=== PATIENT | female | born 1980 | race Caucasian/White ===

== ENCOUNTER 2017-08-08 18:03 | Emergency (ER) | payer OTHER ==
[~2017-08-08] VITALS: Ht 175.3 cm; Wt 59.0 kg
[2017-08-08 18:44] LABS: HEMOGLOBIN 14.8 g/dL (11.7-16.4); WHITE BLOOD COUNT 6.6 x10^3/uL (3.4-10)
[2017-08-08 18:50] LABS: BLOOD UREA NITROGEN 9 mg/dL (7-18)
[2017-08-08] MEDS ORDERED: ONDANSETRON ODT 4 MG ONE (18:57)
[2017-08-08] MEDS ORDERED: HYDROmorphone 2 MG/ML, 1ML ONE (18:58)
[2017-08-08] MEDS ORDERED: DIAZEPAM 5 MG TABLET ONE (18:58)
[2017-08-08] MEDS ORDERED: DIAZEPAM 5 MG TABLET PO ONE (19:00)
[2017-08-08] MEDS ORDERED: HYDROmorphone 1 MG/ML, 1ML IM ONE (19:00)
[2017-08-08] MEDS ORDERED: ONDANSETRON ODT 4 MG PO ONE (19:00)
[2017-08-08 19:20] LABS: PATH.CAST-FLAG NOT PRESENT; SPERM-FLAG NOT PRESENT; SRC-FLAG NOT PRESENT; XTAL-FLAG NOT PRESENT; YLC-FLAG NOT PRESENT
[2017-08-08 20:34] VITALS: BP 116/76
== END 2017-08-08 22:06 | disposition home or self-care (01) ==
LOC: ED 21:52
DX: N83.201 Unspecified ovarian cyst, right side (principal)
CPT/HCPCS: 36415; 72110; 74176; 80048; 81001; 82040; 84703; 85025; 87086; 96372; 99285; J1170; Q0162